=== PATIENT | male | born 1970 | race Caucasian/White ===

== ENCOUNTER 2018-10-12 08:16 | Outpatient (CLI) | payer BC, SELFPAY ==
[2018-10-12 11:36] LABS: Cholesterol 227 mg/dL (50-200); HDL Cholesterol 70 mg/dL (40-60); LDL CHOLESTEROL 137 mg/dL (<100); Triglyceride 69 mg/dL (30-150)
== END 2018-10-12 08:36 ==
PROVIDERS: PCP Emergency Medicine; Visit Provider Emergency Medicine
DX: R07.9 Chest pain, unspecified (principal); R07.81 Pleurodynia; G89.29 Other chronic pain
CPT/HCPCS: 36415; 80061; 83721

== ENCOUNTER 2019-09-20 14:17 | Outpatient (CLI) | payer BC, SELFPAY ==
[2019-09-20 14:41] LABS: Abs Immature Grans 0.01 k/cumm (0.0-0.09); Absolute Basophil Count 0.04 k/cumm (0.0-0.2); Absolute Eosinophil Count 0.27 k/cumm (0.0-0.7); Absolute Lymphocyte Count 1.59 k/cumm (1.2-3.4); Absolute Neutrophil Count 3.94 k/cumm (1.2-6.7); Basophils % 0.6; Eosinophils % 4.1; HCT 43.6 % (40.0-50.0); HGB 15.1 g/dL (13.5-17.5); Immature Grans % 0.2 %; Lymphocytes % 23.9; Mean Corp. HGB Concentration 34.6 g/dL (32.0-36.0); Mean Corpuscular Hemoglobin 29.7 pg (27.0-33.0); Mean Corpuscular Volume 85.8 fL (80-95); Mean Platelet Volume 9.3 fL (8.0-11.0); Neutrophils % 59.2; Platelet Count 196 x1000/uL (130-400); RBC 5.08 m/cumm (4.50-6.00); RBC Distribution Width 12.6 % (11.8-14.1); White Blood Cell Count 6.65 k/cumm (4.4-10.8)
[2019-09-20 15:21] LABS: ESR 6 mm/hr (0-15)
[2019-09-20 16:10] LABS: C-Reactive Protein 0.08 mg/dL (0.0-0.3)
== END 2019-09-20 14:37 ==
PROVIDERS: PCP Emergency Medicine; Visit Provider Emergency Medicine
DX: M79.601 Pain in right arm (principal); M79.644 Pain in right finger(s)
CPT/HCPCS: 36415; 85652; 85025; 86140

== ENCOUNTER 2020-02-23 02:26 | Outpatient (CLI) | payer BC, SELFPAY ==
[2020-02-23 11:57] LABS: Abs Immature Grans 0.02 k/cumm (0.0-0.09); Absolute Basophil Count 0.03 k/cumm (0.0-0.2); Absolute Eosinophil Count 0.15 k/cumm (0.0-0.7); Absolute Lymphocyte Count 1.42 k/cumm (1.2-3.4); Absolute Monocyte Count 0.87 k/cumm (0.11-0.7); Absolute Neutrophil Count 5.02 k/cumm (1.2-6.7); Basophils % 0.4; HCT 43.4 % (40.0-50.0); HGB 15.2 g/dL (13.5-17.5); Immature Grans % 0.3 %; Lymphocytes % 18.9; Mean Corpuscular Hemoglobin 30.1 pg (27.0-33.0); Mean Corpuscular Volume 85.9 fL (80-95); Mean Platelet Volume 8.9 fL (8.0-11.0); Monocytes % 11.6; Neutrophils % 66.8; Platelet Count 201 x1000/uL (130-400); RBC 5.05 m/cumm (4.50-6.00); RBC Distribution Width 12.6 % (11.8-14.1); White Blood Cell Count 7.51 k/cumm (4.4-10.8)
[2020-02-23 12:46] LABS: ESR 5 mm/hr (0-15)
[2020-02-23 12:54] LABS: ALT 35 U/L (16-63); AST 21 U/L (15-37); Albumin 4.3 g/dL (3.4-5.0); Alkaline Phosphatase 98 U/L (46-116); Anion Gap 8.2 mmol/L (3-11); BUN 27 mg/dL (7-18); Bilirubin, Total 0.5 mg/dL (0.2-1.0); C-Reactive Protein 0.05 mg/dL (0.0-0.3); CO2 29.8 mmol/L (21.0-32.0); CREATININE 1.03 mg/dL (0.70-1.30); Calcium 9.2 mg/dL (8.5-10.1); Chloride 101 mmol/L (98-107); Glucose 101 mg/dL (74-106); Potassium 3.9 mmol/L (3.5-5.1); Sodium 139 mmol/L (136-145); Total Protein 7.3 g/dL (6.4-8.2)
[2020-02-23 17:17] LABS: Rheumatoid Factor <8.6 IU/mL (<12.0)
[2020-02-24 08:35] LABS: Cyclic Citrullinated Peptide <2.5 U/mL (<5.0)
[2020-02-24 10:12] LABS: Lyme Ab w Rflx to Lyme Confirm Negative (Negative)
== END 2020-02-23 02:46 ==
PROVIDERS: PCP Emergency Medicine; Visit Provider Emergency Medicine
DX: M25.541 Pain in joints of right hand (principal); M25.542 Pain in joints of left hand; M79.674 Pain in right toe(s); M79.675 Pain in left toe(s)
CPT/HCPCS: 36415; 80053; 85652; 86200; 85025; 86140; 86431; 86618